=== PATIENT | male | born 1950 | race African-American/Black ===

== ENCOUNTER 2017-06-09 08:16 | Emergency (ER) | END 2017-06-09 10:54 | disposition home or self-care (01) ==

== ENCOUNTER 2018-04-22 15:05 | Emergency (ER) | payer BC ==
[~2018-04-22] VITALS: Ht 167.6 cm; Wt 76.2 kg
[~2018-04-22 15:05] MED LIST: ACET500C5 PO; TRAM50TA2 PO
[2018-04-22 15:09] VITALS: Ht 167.6 cm; Wt 76.2 kg
[2018-04-22] MEDS ORDERED: FLUT9.9S NASAL (17:15)
[2018-04-22] MEDS ORDERED: BENZ200C68 PO (17:15)
[2018-04-22] MEDS ORDERED: 0.9126SP NASAL (17:15)
--- NOTE | 2018-04-22 17:22 | ERD ---
ER Documentation Chief Complaint Chief Complaint coughing and runny nose x 7 days HPI This is a 68-year-old male who presents to the emergency room with complaint of dry cough times 7 days he also has a sore throat. States he is having difficulty sleeping due to his cough. + Runny nose, no fever, chest pain, no sh ortness of breath. Denies smoking, has not traveled recently, no sick contacts. History significant for diabetes, has routine primary care provider. ROS All systems reviewed and are negative except as per history of present illness. Medications Home Meds Active Scripts Benzonatate* (Benzonatate*) 200 Mg Capsule, 200 MG PO BID PRN for COUGH for 7 Days, #14 CAP Prov:SUDHEER SALGUERO NP 04/22/18 Fluticasone Propionate (Flonase Allergy Relief) 9.9 Ml [place].susp, 2 SPRAY NASAL BID for nasal congestion for 14 Days, #1 BOTTLE TO EACH NOSTRIL Prov:SUDHEER SALGUERO NP 04/22/18 0.9 % Sodium Chloride (NASAL MIST) 126 Ml [place], 2 SPRAYS NASAL BID for nasal congestion for 10 Days, #1 BOTTLE Prov:SUDHEER SALGUERO NP 04/22/18 Acetaminophen* (Tylophen*) 500 Mg Capsule, 1 CAP PO Q6H PRN for PAIN AND OR ELEVATED TEMP, #20 CAP Prov:MICK CLEMENTE PA-C 06/09/17 Tramadol HCl (Tramadol HCl) 50 Mg Tablet, 50 MG PO Q4 PRN for PAIN, #10 TAB Prov:MICK CLEMENTE PA-C 06/09/17 Allergies Allergies: Coded Allergies: No Known Allergy (Unverified , 06/09/17) PMhx/Soc Medical and Surgical Hx: pt denies Surgical Hx Hx Miscellaneous Medical Probl: Yes (DM) Hx Alcohol Use: Yes Hx Substance Use: No Hx Tobacco Use: No Smoking Status: Never smoker Physical Exam Vitals Vital Signs Date Temp Pulse Resp B/P (MAP) Pulse Ox O2 O2 Flow FiO2 Time Delivery Rate 04/22/18 98 18:15 04/22/18 98.0 18:15 04/22/18 98.5 115 18 143/83 97 Room Air 17:28 (103) 04/22/18 99.9 111 18 141/77 97 15:09 (98) Physical Exam Const: No acute distress Head: Atraumatic Eyes: Normal Conjunctiva, PERRL, EOMI ENT: Normal External Ears, Nose with crusted nasal discharge to right naris. Pharynx pink without lesions or exudate. Neck: Full range of motion. No meningismus. Resp: Clear to auscultation bilaterally Cardio: Regular rate and rhythm, no murmurs Abd: Soft, non tender, non distended. Normal bowel sounds Skin: No petechiae or rashes Back: No midline or flank tenderness Ext: No cyanosis, or edema Neur: Awake and alert Psych: Normal Mood and Affect Results 24 hrs Current Medications Medications Dose Sig/Mc Start Time Status Last (Trade) Ordered Route PRN Stop Time Admin Dose Reason Admin 1,000 mg ONCE STAT 04/22/18 DC 04/22/18 Acetaminophen PO 17:26 17:44 (Tylenol 04/22/18 17:28 Tab) Procedures/MDM This 68 yo gentleman has presented to the ER with c/o irritating cough making it difficult for him to sleep. At the time of discharge, vital signs stable, no respiratory distress. Differential diagnosis include but not limited to: Respiratory infection bacterial/viral/fungal. Influenza, pharyngitis, gastroenteritis, asthma, croup, bronchiolitis, allergies, GERD. Less likely foreign body aspiration, pneumonia . Physical examination and clinical presentation consistent most likely with viral syndrome causing a post-nasal drip and reflexive cough. During the ED course the patient remained stable. The patient is stable to be treated outpatient and will be discharged home. Antibiotics not indicated at this time. Patient instructed on good respiratory hygiene and use of saline nasal rinse, Flonase and Tessalon pearls. T Departure Diagnosis: Primary Impression: Rhinorrhea Additional Impression: Cough Condition: Stable Patient Instructions: Cough, Chronic, Uncertain Cause (Child) Referrals: COMMUNITY CLINICS YOU HAVE RECEIVED A MEDICAL SCREENING EXAM AND THE RESULTS INDICATE THAT YOU DO NOT HAVE A CONDITION THAT REQUIRES URGENT TREATMENT IN THE EMERGENCY DEPARTMENT. FURTHER EVALUATION AND TREATMENT OF YOUR CONDITION CAN WAIT UNTIL YOU ARE SEEN IN YOUR DOCTORS OFFICE WITHIN THE NEXT 1-2 DAYS. IT IS YOUR RESPONSIBILITY TO MAKE AN APPOINTMENT FOR FOLOW-UP CARE. IF YOU HAVE A PRIMARY DOCTOR --you should call your primary doctor and schedule an appointment IF YOU DO NOT HAVE A PRIMARY DOCTOR YOU CAN CALL OUR PHYSICIAN REFERRAL HOTLINE AT IF YOU CAN NOT AFFORD TO SEE A PHYSICIAN YOU CAN CHOSE FROM THE FOLLOWING [facility] CL[facility]ICS [facility] [address] [facility] [address] [facility] [address] [facility] [address] [facility] [facility] [address] [facility]. [facility] [address] Additional Instructions: Call your primary care doctor TOMORROW for an appointment during the next 1 WEEK.Tell the bending machine operator that you were referred from this facility.See the doctor sooner or return here if your condition worsens before your appointment time. Use saline nasal spray twice a day with vigorous blowing nose followed by Flonase nasal spray. Use cough medicine at night for sleep. Return to the immediate emergency room immediately with any changing or worsening of symptoms. SUDHEER SALGUERO NP Apr 22, 2018 17:22
[2018-04-22] MEDS ORDERED: ACETAMINOPHEN 500 MG TAB PO STA (17:26)
[2018-04-22 17:28] VITALS: BP 143/83; RESP 18
[2018-04-22 18:15] VITALS: PULSE 98
== END 2018-04-22 18:17 | disposition home or self-care (01) ==
LOC: FTE 15:05
DX: J34.89 Other specified disorders of nose and nasal sinuses (principal); E11.9 Type 2 diabetes mellitus without complications
CPT/HCPCS: 99283